=== PATIENT | male | born 1965 | race Hispanic/Latino ===

== ENCOUNTER 2022-02-09 19:18 | Emergency (ER) | payer BC, SELFPAY ==
[~2022-02-09 19:18] MED LIST: Iopamidol 370 76% 100 ML VIAL ONE
[2022-02-09] MEDS ORDERED: Dextrose 50% Abboject 50 ML SYRINGE ONE ×3 (19:24→22:20)
[2022-02-09 20:01] LABS: #Basophils 0.1 10x3/uL (0.0-0.2); #Eosinphils 0.1 10x3/uL (0.0-0.5); #Monocytes 1.3 10x3/uL (0.0-1.1); #Neutrophils 10.1 10x3/uL (1.5-8.4); %Basophils 0.4 % (0.0-2.0); %Eosinophils 0.6 % (0.0-6.0); %Lymphocytes 12.7 % (18.0-47.0); Hemoglobin 15.7 g/dL (13.5-17.5); Mean Corpuscular HGB CONC 33.1 g/dL (32.0-36.0); Mean Corpuscular Hemoglobin 27.7 pg (27.0-33.0); Mean Corpuscular Volume 83.7 fl (81.2-95.1); Mean Platelet Volume 10.7 fl (7.4-10.4); Platelet Count 236 10x3/uL (150-450); RBC Distribution Width 17.2 % (11.5-14.5); Red Blood Cell (RBC) Count 5.66 10x6/uL (4.32-5.72); White Blood Cell (WBC) Count 13.2 10x3/uL (3.5-10.5)
[2022-02-09 20:04] LABS: ALT (SGPT) 22 U/L (8-55); AST (SGOT) 32 U/L (5-34); Alkaline Phosphatase 129 U/L (40-110); Anion Gap 14 mmol/L (10-20); BUN (Urea Nitrogen) 20 mg/dL (8.4-25.7); Bilirubin, Total 1.3 mg/dL (0.2-1.2); Calc. Creatinine Clearance 0 mL/min (70-130); Calcium 9.1 mg/dL (7.8-10.44); Carbon Dioxide 25 mmol/L (22-29); Chloride 106 mmol/L (98-107); Estimated GFR 86; Globulin 3.7 g/dL (2.4-3.5); Potassium 3.7 mmol/L (3.5-5.1); Protein, Total 7.7 g/dL (6.0-8.3); Sodium 141 mmol/L (136-145)
[2022-02-09 20:20] LABS: Glucose 34 mg/dL (70-105)
[2022-02-10] MEDS ORDERED: Octreotide Acetate 50 MCG/ML AMP ONE (00:52)
[2022-02-10 01:00] LABS: SARS-CoV-2 NAA Rapid Test Not Detected (NotDetected)
== END 2022-02-10 01:24 | disposition short-term general hospital (02) ==
LOC: CSHERS 19:18
DX: E11.649 Type 2 diabetes mellitus with hypoglycemia without coma (principal); I11.0 Hypertensive heart disease with heart failure; I50.9 Heart failure, unspecified; Z20.822 Contact with and (suspected) exposure to COVID-19
CPT/HCPCS: 36416; 70450; 71045; 71275; 74174; 80053; 83880; 84484; 85025; 86850; 86900; 86901; 93005; 96374; 96375; 96376; J2354; J7999; Q9967; U0002